=== PATIENT | female | born 2000 | race Caucasian/White ===

== ENCOUNTER 2022-11-03 21:45 | Emergency (ER) | payer OTHER ==
[2022-11-03 22:02] LABS: BASOPHILS # (AUTO) 0.1 10^3/uL (0.0-0.1); BASOPHILS % (AUTO) 0.6 %; EOSINOPHILS # (AUTO) 0.2 10^3/uL (0.0-0.7); EOSINOPHILS % (AUTO) 2.3 %; LYMPHOCYTES # (AUTO) 3.5 10^3/uL (1.5-3.5); LYMPHOCYTES % (AUTO) 37.3 %; MEAN CORPUSCULAR HEMOGLOBIN 30.4 pg (27.0-31.0); MEAN CORPUSCULAR HGB CONC 34.1 g/dL (32.0-36.0); MEAN CORPUSCULAR VOLUME 88.9 fL (81.0-99.0); MEAN PLATELET VOLUME 9.8 fL (7.9-10.8); MONOCYTES # (AUTO) 0.5 10^3/uL (0.0-1.0); MONOCYTES % (AUTO) 5.2 %; NEUTROPHILS # (AUTO) 5.1 10^3/uL (1.5-6.6); NEUTROPHILS % (AUTO) 54.4 %; PLT - PLATELET COUNT 250 10^3/uL (130-450); RED BLOOD COUNT 4.61 10^6/uL (4.20-5.40); RED CELL DISTRIBUTION WIDTH 12.5 % (12.0-15.0); WHITE BLOOD COUNT 9.4 x10^3/uL (4.8-10.8)
[2022-11-03 22:15] LABS: ALBUMIN 4.2 g/dL (3.2-5.5); ALBUMIN/GLOBULIN RATIO 1.4 (1.0-2.2); BILIRUBIN,TOTAL 0.5 mg/dL (0.2-1.0); CALCIUM 8.9 mg/dL (8.5-10.3); CREATININE 0.8 mg/dL (0.4-1.0); POTASSIUM 3.3 mmol/L (3.5-5.0); TOTAL PROTEIN 7.1 g/dL (6.7-8.2)
--- NOTE | 2022-11-03 23:28 | ED Physician Documentation ---
History of Present Illness - Stated complaint Stated Complaint: DIZZY,FATIGUE - Chief complaint Chief Complaint: General - History obtained from History obtained from: Patient - Additonal information Additional information: 21-year-old woman, previously healthy, presents with lightheadedness, anxiety, abdominal discomfort and chest tightness while cooking dinner tonight. She called her friend who decided to take her to the hospital. Friend reports that patient appeared extremely anxious on her arrival. Denies fevers, chest pain, shortness of breath, cough, vomiting, diarrhea or urinary symptoms. Patient did feel nauseous at the time but this has resolved. LMP last week PD PAST MEDICAL HISTORY - Allergies Allergies/Adverse Reactions: Allergies Allergy/AdvReac Type Severity Reaction Status Date / Time No Known Drug Allergies Allergy Verified 11/03/22 21:48 PD ED PE NORMAL - Vitals Vital signs reviewed: Yes - General General: Alert and oriented X 3, No acute distress, Well developed/nourished - HEENT HEENT: Atraumatic, PERRL, EOMI - Neck Neck: Supple, no meningeal sign - Cardiac Cardiac: RRR - Respiratory Respiratory: No respiratory distress, Clear bilaterally - Abdomen Abdomen: Non tender, Non distended - Derm Derm: Normal color, Warm and dry - Extremities Extremities: No deformity - Neuro Neuro: Alert and oriented X 3 - Psych Psych: Normal mood, Normal affect Results - Vitals Vitals: Vital Signs - 24 hr 11/03/22 21:48 Temperature 37.0 C Heart Rate 69 Respiratory 16 Rate Blood Pressure 140/90 H O2 Saturation 99 Oxygen O2 Source Room air - Labs Labs: Laboratory Tests 11/03/22 11/03/22 21:59 21:59 WBC 9.4 RBC 4.61 Hgb 14.0 Hct 41.0 MCV 88.9 MCH 30.4 MCHC 34.1 RDW 12.5 Plt Count 250 MPV 9.8 Neut # (Auto) 5.1 Lymph # (Auto) 3.5 [place] # (Auto) 0.5 Eos # (Auto) 0.2 Baso # (Auto) 0.1 Absolute Nucleated RBC 0.00 Nucleated RBC % 0.0 Sodium 139 Potassium 3.3 L Chloride 106 Carbon Dioxide 25 Anion Gap 8.0 BUN 10 Creatinine 0.8 Estimated GFR (MDRD) 91 Glucose 108 H Calcium 8.9 Total Bilirubin 0.5 AST 22 ALT 21 Alkaline Phosphatase 79 Total Protein 7.1 Albumin 4.2 Globulin 2.9 Albumin/Globulin Ratio 1.4 Lipase 36 PD Medical Decision Making - ED course ED course: 21-year-old woman presented to the emergency department with lightheadedness and abdominal cramping. normal cardiac monitoring in the ED, normal labwork aside from borderline low potassium that was repleted. u/a negative, hcg negative. return precautions given. plan to f/u pcp and [employer] job [employer]. Departure - Departure Clinical Impression: Lightheadedness, Abdominal cramping Condition: Good Instructions: ED Dizziness [facility] Follow-Up: Shukri Rubin MD [Provider Admit Priv/Credential] - Comments: You were seen in the emergency department for dizziness and cramping abdominal pain. Your labwork, physical exam and monitoring were normal. 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 Please also follow-up with your primary care provider and return to the emergency department if you have any new or worsening symptoms or other concerns.
[2022-11-03] MEDS ORDERED: POTASSIUM CHLORIDE 20 MEQ/15 ML UDC PO STA (23:32)
[2022-11-04 00:10] LABS: BILIRUBIN,URINE NEGATIVE (NEGATIVE); GLUCOSE, URINE (UA) NEGATIVE (NEGATIVE); KETONES,URINE (UA) NEGATIVE (NEGATIVE); LEUKOCYTE ESTERASE, URINE NEGATIVE (NEGATIVE); NITRITE,URINE NEGATIVE (NEGATIVE); OCCULT BLOOD,URINE NEGATIVE (NEGATIVE); PROTEIN,URINE NEGATIVE (NEGATIVE); UROBILINOGEN,URINE 0.2 (NORMAL) E.U./dL (NORMAL)
[2022-11-04 00:11] LABS: CLARITY,URINE CLEAR (CLEAR)
[2022-11-04 00:12] LABS: HCG UR QUAL NEGATIVE
[2022-11-04 00:46] VITALS: BP 119/65; O2SAT 95
== END 2022-11-04 00:42 | disposition home or self-care (01) ==
LOC: ED 21:45
DX: R42 Dizziness and giddiness (principal); R10.9 Unspecified abdominal pain
CPT/HCPCS: 36415; 80053; 81003; 81025; 83690; 85025; 99282; 99283; A9270; 81001; 87086

== ENCOUNTER 2023-04-26 21:26 | Emergency (ER) | payer OTHER ==
[2023-04-26 21:41] VITALS: BP 135/91; O2SAT 99
[2023-04-26 21:52] LABS: RAPID STREP SCREEN Negative (Negative)
--- NOTE | 2023-04-26 22:00 | ED Physician Documentation ---
History of Present Illness - Stated complaint Stated Complaint: SORE THROAT/BODY ACHES/LUCAS - Chief complaint Chief Complaint: Heent - History obtained from History obtained from: Patient - Additonal information Additional information: 22yF previously healthy Presents with viral URI symptoms for the past 2 days sore throat, headache, myalgia, nasal congestion, ear fullness chest discomfort blood-streaked sputum. Leg swelling, recent travel, bedrest, shortness of breath she does states she thinks that the blood may be coming from using her nose. Patient also with fever at home with temp around 100. Exposed to someone with with strep and mono exposure. PD PAST MEDICAL HISTORY - Past Medical History Past Medical History: No Cardiovascular: None Respiratory: Asthma Neuro: None Endocrine/Autoimmune: None GI: None PERF[employer]TER: None : None HEENT: None Psych: None Musculoskeletal: None Derm: None - Past Surgical History Past Surgical History: No - Present Medications Home Medications: Ambulatory Orders Medication Instructions Recorded Confirmed No Known Home Medications 03/21/23 04/26/23 - Allergies Allergies/Adverse Reactions: Allergies Allergy/AdvReac Type Severity Reaction Status Date / Time No Known Drug Allergies Allergy Verified 04/26/23 21:34 - Social History Does the pt smoke?: No Smoking Status: Never smoker Does the pt drink ETOH?: Yes Does the pt have substance abuse?: No - Immunizations Immunizations are current?: Yes PD ED PE NORMAL - Vitals Vital signs reviewed: Yes - General General: Alert and oriented X 3, No acute distress, Well developed/nourished - HEENT HEENT: Atraumatic, PERRL, EOMI, Ears normal, Moist mucous membranes, Pharynx benign - Neck Neck: Supple, no meningeal sign - Cardiac Cardiac: RRR - Respiratory Respiratory: No respiratory distress, Clear bilaterally - Abdomen Abdomen: Non tender, Non distended - Derm Derm: Normal color, Warm and dry - Neuro Neuro: Alert and oriented X 3, No motor deficit, No sensory deficit Results - Vitals Vitals: Vital Signs - 24 hr 04/26/23 21:28 Temperature 36.7 C Heart Rate 70 Respiratory 17 Rate Blood Pressure 135/91 H O2 Saturation 99 Oxygen O2 Source Room air - Labs Labs: Laboratory Tests 04/26/23 21:30 Group A Strep Rapid Negative PD Medical Decision Making - ED course ED course: 22-year-old woman presents with viral URI symptoms past 2 days, Blood-streaked sputum. Doubt PE given patient is low risk. Normal vital signs and physical exam with exception of viral URI clinical appearance. symptomatic care discussed. return precautions given. IM toradol provided with improvement in LUCAS and myalgia. Departure - Departure Disposition: 01 Home, Self Care Clinical Impression: Viral URI with cough Condition: Stable Instructions: ED Viral Syndrome Comments: You were seen in the emergency department for Viral upper respiratory infection symptoms. Your strep swab was negative. We will send a strep culture and call you if it comes up positive. The nose swab is still pending and can be viewed on your patient health portal. Please follow-up with a primary care provider or walk in clinic (referral provided) and return to the emergency department if you have any new or worsening symptoms or other concerns. Forms: PCP List
[2023-04-26] MEDS: KETOROLAC 30 MG/ML VIAL IM STA (22:10)
--- NOTE | 2023-04-26 22:18 | XRAY Report ---
PROCEDURE: Chest 1V INDICATIONS: COUGHING/SORETHROAT/CONGESTION TECHNIQUE: One view of the chest was acquired. COMPARISON: None. FINDINGS: Surgical changes and devices: None. Lungs and pleura: No pleural effusions or pneumothorax. Lungs are clear. Mediastinum: Mediastinal contours appear normal. Heart size is normal. Bones and chest wall: No suspicious bony lesions. Overlying soft tissues appear unremarkable. IMPRESSION: No acute cardiopulmonary process. Reviewed by: Klever Olson MD on 04/26/2023 10:16 PM [facility] Approved by: Klever Olson MD on 04/26/2023 10:16 PM [facility] Station ID: [id number]
[2023-04-26 22:34] LABS: B. PARAPERTUSSIS- RESP PCR PAN NOT DETECTED; B. PERTUSSIS- RESP PCR PANEL NOT DETECTED; C. PNEUMONIAE- RESP PCR PANEL NOT DETECTED; CORONAVIRUS 229E-RESP PCR NOT DETECTED; CORONAVIRUS HKU1-RESP PCR NOT DETECTED; CORONAVIRUS NL63-RESP PCR DETECTED; CORONAVIRUS OC43-RESP PCR NOT DETECTED; HUMAN METAPNEUMOVIRUS NOT DETECTED; INFLUENZA A- RESP PCR PANEL NOT DETECTED; INFLUENZA B - RESP PCR PANEL NOT DETECTED; M. PNEUMONIAE- RESP PCR PANEL NOT DETECTED; PARAINFLUENZA VIRUS 1 NOT DETECTED; PARAINFLUENZA VIRUS 2 NOT DETECTED; PARAINFLUENZA VIRUS 3 NOT DETECTED; PARAINFLUENZA VIRUS 4 NOT DETECTED; RHINOVIRUS/ENTEROVIRUS NOT DETECTED; RSV- RESP PCR PANEL NOT DETECTED; SARS-CoV-2 -RESP PCR PANEL NOT DETECTED
== END 2023-04-26 22:15 | disposition home or self-care (01) ==
LOC: ED 21:26
DX: J06.9 Acute upper respiratory infection, unspecified (principal); B97.89 Other viral agents as the cause of diseases classified elsewhere
CPT/HCPCS: 87070; 87430; 87633; 96372; 99283; 99284